=== PATIENT | male | born 1975 | race Caucasian/White ===

== ENCOUNTER 2020-12-28 08:08 | Outpatient (REF) | payer SELFPAY ==
[2020-12-28 10:04] LABS: MANUAL DIFF FLAG NO
[2020-12-28 10:12] LABS: Basophils Percent Auto 0.8 % (0-2); Eosinophils Absolute Auto 0.2 X10*3/uL (0.0-0.4); Eosinophils Percent Auto 5.3 % (0-4); Hematocrit 42.3 % (42.0-52.0); Hemoglobin 13.9 g/dl (14.0-18.0); Imm Gran Abs Auto 0.01 X10*3/uL (0.00-0.03); Imm Gran Pct Auto 0.3 % (0.0-0.4); Lymphocytes Absolute Auto 1.5 X10*3/uL (1.2-4.9); Lymphocytes Percent Auto 38.9 % (20-40); Mean Corpuscular HGB Conc 32.9 g/dl (31.0-36.0); Mean Corpuscular Volume 94.2 fL (80.0-98.0); Monocytes Absolute Auto 0.4 X10*3/uL (0.1-1.2); Monocytes Percent Auto 10.9 % (2-11); Neutrophils Absolute Auto 1.6 x10*3/uL (2.0-8.3); Neutrophils Percent Auto 43.8 % (45-73); Platelet Count 296 X10*3/uL (160-400); Red Blood Count 4.49 X10*6/uL (4.60-5.80); Red Cell Distribution Width 13.8 % (11.0-16.0); White Blood Count 3.8 X10*3/uL (4.8-10.8)
[2020-12-28 10:34] LABS: Alanine Aminotransferase 32 U/L (0-40); Albumin Level 4.2 g/dL (3.5-5.0); Alkaline Phosphatase 45 U/L (39-117); Anion Gap 11 (12-20); Aspartate Amino Transferase 22 U/L (5-37); Bilirubin Total 0.4 mg/dL (0.0-1.0); Blood Urea Nitrogen 12 mg/dL (9-16); Calcium 8.9 mg/dL (8.4-10.2); Carbon Dioxide 28 mmol/L (22-29); Chloride 105 mmol/L (96-108); Cholesterol 227 mg/dL; Estimated Glomerular Filt Rate > 60; Glucose Fasting 102 mg/dL (60-99); HDL Cholesterol 58 mg/dL; LDL Cholesterol Calculated 130 mg/dl; Potassium 4.3 mmol/L (3.3-5.1); Sodium 140 mmol/L (135-145); Total Protein 6.8 g/dL (6.5-8.0); Triglycerides 199 mg/dL
== END 2020-12-28 08:09 | disposition home or self-care (01) ==
LOC: HO.10HDL 08:08
PROVIDERS: Visit Provider Internal Medicine
DX: E78.00 Pure hypercholesterolemia, unspecified (principal); E55.9 Vitamin D deficiency, unspecified; Z87.820 Personal history of traumatic brain injury
CPT/HCPCS: 36415; 80053; 80061; 82306; 85025

== ENCOUNTER 2023-01-26 09:12 | Outpatient (REF) | payer SELFPAY ==
[2023-01-26 10:35] LABS: MANUAL DIFF FLAG NO
[2023-01-26 10:39] LABS: Basophils Percent Auto 0.9 % (0-2); Eosinophils Absolute Auto 0.2 X10*3/uL (0.0-0.4); Eosinophils Percent Auto 4.2 % (0-4); Hematocrit 43.3 % (42.0-52.0); Hemoglobin 14.7 g/dl (14.0-18.0); Lymphocytes Absolute Auto 1.8 X10*3/uL (1.2-4.9); Lymphocytes Percent Auto 40.3 % (20-40); Mean Corpuscular HGB Conc 33.9 g/dl (31.0-36.0); Mean Corpuscular Hemoglobin 30.9 pg (27.0-33.0); Mean Corpuscular Volume 91.2 fL (80.0-98.0); Mean Platelet Volume 8.9 fL (9.4-12.4); Monocytes Absolute Auto 0.4 X10*3/uL (0.1-1.2); Neutrophils Absolute Auto 2.1 x10*3/uL (2.0-8.3); Neutrophils Percent Auto 46.6 % (45-73); Platelet Count 286 X10*3/uL (160-400); Red Blood Count 4.75 X10*6/uL (4.60-5.80); Red Cell Distribution Width 13.2 % (11.0-16.0); White Blood Count 4.5 X10*3/uL (4.8-10.8)
[2023-01-26 11:10] LABS: Alanine Aminotransferase 22 U/L (0-40); Albumin Level 4.3 g/dL (3.5-5.0); Alkaline Phosphatase 45 U/L (39-117); Anion Gap 9 (12-20); Aspartate Amino Transferase 17 U/L (5-37); Bilirubin Total 0.4 mg/dL (0.0-1.0); Blood Urea Nitrogen 15 mg/dL (9-16); Calcium 9.1 mg/dL (8.4-10.2); Carbon Dioxide 31 mmol/L (22-29); Chloride 104 mmol/L (96-108); Cholesterol 212 mg/dL (<200); Estimated Glomerular Filt Rate > 60; Glucose Fasting 101 mg/dL (60-99); HDL Cholesterol 63 mg/dL (>40); LDL Cholesterol Calculated 123 mg/dL (<100); Potassium 4.3 mmol/L (3.3-5.1); Sodium 140 mmol/L (135-145); Total Protein 7.1 g/dL (6.5-8.0); Triglycerides 131 mg/dL (<150)
[2023-01-26 11:20] LABS: Vitamin D 25-OH Total 42.8 ng/mL (>30)
== END 2023-01-26 09:13 | disposition home or self-care (01) ==
LOC: HO.10HDL 09:12
PROVIDERS: Visit Provider Internal Medicine
DX: Z00.00 Encounter for general adult medical examination without abnormal findings (principal); E55.9 Vitamin D deficiency, unspecified
CPT/HCPCS: 36415; 80053; 80061; 82306; 85025

== ENCOUNTER 2023-09-21 08:38 | Outpatient (REF) | payer SELFPAY ==
[2023-09-21 10:22] LABS: MANUAL DIFF FLAG NO
[2023-09-21 10:23] LABS: Eosinophils Absolute Auto 0.1 X10*3/uL (0.0-0.4); Eosinophils Percent Auto 3.6 % (0-4); Hematocrit 43.2 % (42.0-52.0); Hemoglobin 14.8 g/dl (14.0-18.0); Imm Gran Abs Auto 0.01 X10*3/uL (0.00-0.03); Imm Gran Pct Auto 0.3 % (0.0-0.4); Lymphocytes Absolute Auto 1.6 X10*3/uL (1.2-4.9); Lymphocytes Percent Auto 40.1 % (20-40); Mean Corpuscular HGB Conc 34.3 g/dl (31.0-36.0); Mean Corpuscular Hemoglobin 31.4 pg (27.0-33.0); Mean Corpuscular Volume 91.5 fL (80.0-98.0); Mean Platelet Volume 8.8 fL (9.4-12.4); Monocytes Absolute Auto 0.4 X10*3/uL (0.1-1.2); Neutrophils Absolute Auto 1.8 x10*3/uL (2.0-8.3); Platelet Count 275 X10*3/uL (160-400); Red Blood Count 4.72 X10*6/uL (4.60-5.80); Red Cell Distribution Width 13.2 % (11.0-16.0); White Blood Count 3.9 X10*3/uL (4.8-10.8)
[2023-09-21 11:03] LABS: Alanine Aminotransferase 27 U/L (0-40); Albumin Level 4.3 g/dL (3.5-5.0); Alkaline Phosphatase 41 U/L (39-117); Anion Gap 9 (12-20); Aspartate Amino Transferase 18 U/L (5-37); Bilirubin Total 0.8 mg/dL (0.0-1.0); Blood Urea Nitrogen 15 mg/dL (9-16); C Reactive Protein < 0.04 mg/dL (< or = 0.50); Calcium 9.6 mg/dL (8.4-10.2); Carbon Dioxide 31 mmol/L (22-29); Chloride 104 mmol/L (96-108); Cholesterol 220 mg/dL (<200); Estimated Glomerular Filt Rate > 60; Glucose Fasting 95 mg/dL (60-99); HDL Cholesterol 69 mg/dL (>40); LDL Cholesterol Calculated 134 mg/dL (<100); Lipase 24 U/L (8-78); Potassium 4.2 mmol/L (3.3-5.1); Sodium 140 mmol/L (135-145); Total Protein 7.1 g/dL (6.5-8.0); Triglycerides 86 mg/dL (<150)
== END 2023-09-21 08:39 | disposition home or self-care (01) ==
LOC: HO.10HDL 08:38
PROVIDERS: Visit Provider Internal Medicine
DX: R10.9 Unspecified abdominal pain (principal); E78.00 Pure hypercholesterolemia, unspecified
CPT/HCPCS: 36415; 80053; 80061; 83690; 85025; 86140

== ENCOUNTER 2023-09-28 07:59 | Outpatient (REF) | payer OTHER, SELFPAY ==
--- NOTE | ~2023-09-28 | US_ITS ---
EXAMINATION: US ABDOMEN COMPLETE CLINICAL INFORMATION: Abdominal bloating. COMPARISON: None available. TECHNIQUE: Real-time imaging of the abdominal viscera. FINDINGS: PANCREAS: The distal pancreas is not well seen due to shadowing from overlying bowel gas, otherwise within normal limits. ABDOMINAL AORTA: Visualized portions are normal. INFERIOR VENA CAVA: Visualized portions are normal. LIVER: The liver is normal in size. The liver contour is normal. Parenchymal echogenicity is normal. No focal hepatic lesion. There is no intrahepatic biliary duct dilatation seen. GALLBLADDER: Suggestion of 0.6 cm polyp or adherent calculus in the region of the gallbladder neck. No significant gallbladder wall thickening. No pericholecystic free fluid. Negative Church's sign. COMMON BILE DUCT: Not well visualized due to shadowing from overlying bowel gas. The well-seen upper third measures up to 0.3 cm in diameter. RIGHT KIDNEY: Simple appearing cyst in the lower pole measuring 0.9 cm. Hyperechoic lesion in the lower pole measuring 0.4 x 0.5 cm without associated color flow on vascular Doppler nor significant posterior shadowing features. No hydronephrosis or renal calculi. The kidney measures 10.8 cm in maximum dimension. LEFT KIDNEY: No hydronephrosis. No renal calculi or focal parenchymal lesions. The kidney measures 10.5 cm in maximum dimension. SPLEEN: The spleen measures 8.6 cm in maximum dimension. FREE FLUID: None. US/US abdomen complete IMPRESSION: 1. Suggestion of a 0.6 cm polyp or adherent calculus in the region of the gallbladder neck. Recommend a follow-up ultrasound in 6 months. 2. Nonspecific hyperechoic lesion in the lower pole of the right kidney, possibly representing a small angiomyolipoma. This could be followed up at the moment of reevaluation of the gallbladder abnormality. Electronically signed by: Izabella Roy MD 09/28/2023 09:26 AM EDT
== END 2023-09-28 08:00 | disposition home or self-care (01) ==
LOC: HO.US 07:59
PROVIDERS: PCP Internal Medicine; Visit Provider Internal Medicine
DX: R14.0 Abdominal distension (gaseous) (principal)
CPT/HCPCS: 76700

== ENCOUNTER 2024-05-14 08:59 | Outpatient (AMB) | payer OTHER, SELFPAY ==
--- NOTE | 2024-05-14 09:00 | A.OFFPC_ITS ---
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 Required: No Accompanied by: Self / Same As Patient Allergies No Known Allergies Allergy (Verified 05/14/24 09:42) Medication List - Last Reconciled 05/14/24 by Benny Velez MD dextroamphetamine-amphetamine 25 mg ER (Adderall XR) 25 mg PO DAILY fluoxetine 20 mg PO DAILY Tobacco use date assessed: 05/14/24 Dental Screening Dental Screen Date: 05/14/24 Did you have a dental visit in the last 12 months?: Yes Did you have a dental problem in the last 6 months where you did not have access to dental care?: No [facility] Medical History Hyperlipidemia Traumatic brain injury ADHD (attention deficit hyperactivity disorder) Family History Mother No problems noted. Father No problems noted. Social History Housing: House Patient Tobacco Use Status: Never used Tobacco e-Cigarette/Vaping Use: Never Used service: No Current occupational status: employed Cognitive needs: No Hearing needs: No Vision needs: No Questionnaire PHQ-9 Over the last 2 weeks, how often have you been bothered by any of the following problems? 1. Little interest or pleasure in doing things: not at all 2. Feeling down, depressed, or hopeless: not at all 3. Trouble falling or staying asleep, or sleeping too much: not at all 4. Feeling tired or having little energy: not at all 5. Poor appetite or overeating: not at all 6. Feeling bad about yourself - or that you are a failure or have let yourself or your family down: not at all 7. Trouble concentrating on things, such as reading the newspaper or watching television: not at all 8. Moving or speaking so slowly that other people could have noticed. Or the opposite - being so fidgety or restless that you have been moving around a lot more than usual: not at all 9. Thoughts that you would be better off or of hurting yourself in some way: not at all Total score: 0 Depression Screening Interpretation: Negative Depression Screening Done: Yes Source: Developed by Drs. Eran Fajardo, Yamilex Aguilera, Derrick Blanco and colleagues, with an educational anirudh from [employer]. Thrive Questionnaire Date Thrive assessed: 05/14/24 I am a: Patient Within the past 12 months, did the food you bought not last and you didn't have the money to get more?: Never true Within the past 12 months, did you worry whether your food would run out before you got money to buy more?: Never true Do you have trouble paying for medicines?: No Do you have trouble getting transportation to medical appointments?: No Do you have trouble paying your heating and electricity bill?: No Do you have trouble taking care of your child, family member or friend?: No Do you have trouble with day-to-day activities such as bathing, preparing meals, shopping, managing finances, etc.?: No Are you currently unemployed and looking for a job?: No Are you interested in more education?: No Currently or been in a relationship where the following occur: No concerns reported THRIVE Score: 0 AUDIT C Alcohol Use Questionnaire (AUDIT-C) 1. How often do you have a drink containing alcohol?: Monthly or less 2. How many drinks containing alcohol do you have on a typical day when you are drinking?: 1 or 2 3. How often do you have six or more drinks on one occasion?: Less than monthly Total Score: 2 KLAUDIA-7 AMB Questionnaire KLAUDIA-7 Date KLAUDIA - 7 assessed: 05/14/24 Feeling nervous, anxious, or on edge: 0 = Not at all Not being able to stop or control worryin = Not at all Worrying too much about different things: 0 = Not at all Trouble relaxin = Not at all Being so restless that it is hard to sit still: 0 = Not at all Becoming easily annoyed or irritable: 0 = Not at all Feeling afraid as if something awful might happen: 0 = Not at all Total KLAUDIA-7 score (0-4 normal; 5-9 mild; 10-14 moderate; 15-21 severe): 0 Source: Developed by Drs. Eran Fajardo, Yamilex Aguilera, Derrick Blanco and colleagues, with an educational anirudh from [employer]. Physical exam (Primary Care) Vital Signs: Last Vital Signs Temp 97.9 F 05/14/24 09:08 Pulse 74 05/14/24 09:08 BP 122/80 05/14/24 09:08 Pulse Ox 99 05/14/24 09:08 Oxygen Delivery Method Room Air 05/14/24 09:08 Care Plan Goal for BP management: BP is in range. On no medications BMI result Body Mass Index 23.5 Tobacco/Smoking Status: Tobacco use Status Tobacco use date assessed 05/14/24 05/14/24 09:03 Patient Tobacco Use Status Never used Tobacco 05/14/24 09:03 e-Cigarette/Vaping Use Never Used 05/14/24 09:03 PHQ-9: PHQ-9 Score PHQ-9: Total score 0 05/14/24 09:16 Depression Screening Interpretation: Negative Thrive Assessment: Date of Thrive Assessment Date Thrive assessed 05/14/24 05/14/24 09:03 Currently or been in a relationship where the following occur: No concerns reported Coding Level of Care Code New Pt Level 4 (79054) Complex EM visit Add On G2211 Diagnoses ADHD (attention deficit hyperactivity disorder) F90.9 Traumatic brain injury S06.9XAA Hyperlipidemia E78.5 Assessment & Plan Assessment & Plan (1) ADHD (attention deficit hyperactivity disorder): Code(s): F90.9 - Attention-deficit hyperactivity disorder, unspecified type Category: Medical Plan: Sx well controlled on Adderal. He is fully functional and able to do all ADL's (2) Traumatic brain injury: Code(s): S06.9XAA - Unspecified intracranial injury with loss of consciousness status unknown, initial encounter Category: Medical Plan: Patient needs SSRI for functioning. Current dosage is appropriate. (3) Hyperlipidemia: Code(s): E78.5 - Hyperlipidemia, unspecified Category: Medical Plan: Condition is stable, continue current medications Plan History of Present Illness The patient is a 48-year-old male presenting with a need for a screening colonoscopy due to a notable family history of colon cancer. Both his father and uncle had colon cancer, which prompts his vigilance for early screening. Previously, an ultrasound showed nondescript masses, not deemed concerning by his physician, yet he was unable to secure clear findings. 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 He was initially treated with fluoxetine, having responded well to it for his anxiety and depressive symptoms. Over years, he suspected ADHD might contribute to his cognitive complaints, leading to trials of Ritalin and eventual transition to Adderall, which effectively mitigates his symptoms. He notably manages cholesterol levels, albeit presently without fasting lab data. His medication regimen includes a daily dose of fluoxetine and Adderall, which aligns with his needs without immediate refill requirements. Social History - Lives in [place] with his ; no children - Employed at [employer] - No additional details on substance use or exercise habits Review of Systems - Gastrointestinal: Reports gassy symptoms; denies current stomach pain - Neurological: Reports past cognitive issues and brain fog - Psychiatric: Reports taking fluoxetine for depression and anxiety; reports taking Adderall Physical Exam General: Cooperative and healthy appearing Nutritional Appearance: Well nourished Orientation/consciousness: Patient oriented x3 Limitations: No limitations Head: Normal to inspection General: Appearance normal, both eyes and all related structures Neck: Normal visual inspection Chest: Normal palpation of entire chest wall Respiratory: N ormal respiratory effort Neurology: Patient oriented x3, history of traumatic brain injury, in a coma for three days, cognitive issues, currently on fluoxetine and Adderall. Results - Labs: Higher end cholesterol levels (self-reported) - Diagnostics: Inconclusive ultrasound from six months ago (self-reported) Plan The patient and I discussed proceeding with a screening colonoscopy due to his concerning family history of colon cancer, contingent upon insurance acceptance at the preferred location. His ADHD management regimen of Adderall appears effective, thus it will be maintained. Fluoxetine will continue to support his psychiatric stability. To evaluate his elevated cholesterol further, fasting labs have been advised, and addressing dietary factors is encouraged. We will synchronize further steps based on subsequent results and maintain periodic assessments to ensure optimal health management. Patient was informed and verbally consented to the use of an ambient scribe for clinic note documentation during this visit. Discussion Notes During today's session, we thoroughly reviewed the need for colon cancer screening given the patient's familial risk, and I obtained his consent to move forward with initiating a screening colonoscopy. We discussed continuing current psychiatric medications, fluoxetine and Adderall, as they appear to be managing his symptoms effectively. I highlighted the importance of returning for fasting labs to comprehensively address his cholesterol levels. He understands the need for close monitoring and agreed with the planned interventions, expressing readiness to comply with the outlined approaches for preventive care and chronic condition treatment. Return precautions and further evaluations will be contingent on upcoming diagnostics. Patient Instructions - Schedule a colonoscopy at [place], ensuring insurance coverage is confirmed. - Continue taking prescribed fluoxetine and Adderall as directed. - Follow dietary recommendations to manage cholesterol levels. - Return to the lab for fasting blood work. - Monitor for any new or worsening symptoms and follow up as discussed. Medications: Refilled dextroamphetamine-amphetamine 25 mg ER (Adderall XR) 25 mg PO DAILY 30 caps 0RF
[2024-05-14 09:08] VITALS: BP 122/80; PULSE 74; TEMP 36.6; O2SAT 99; BMI 23.5
== END 2024-05-14 09:33 | disposition home or self-care (01) ==
LOC: HO.HMCHD 08:59
PROVIDERS: PCP Internal Medicine; Visit Provider Internal Medicine
DX: F90.9 Attention-deficit hyperactivity disorder, unspecified type (principal); S06.9XAA Unspecified intracranial injury with loss of consciousness status unknown, initial encounter; E78.5 Hyperlipidemia, unspecified

== ENCOUNTER → 2024-05-14 08:59 | Outpatient (BNVA) | payer OTHER, SELFPAY | PROVIDERS: PCP Internal Medicine; Visit Provider Internal Medicine ==

== ENCOUNTER 2024-07-11 07:05 | Outpatient (REF) | payer OTHER, SELFPAY ==
--- OUTSIDE RECORDS SUMMARY | 2024-07-11 07:08 | XMS_ITS ---
Author Name [facility] Organization Unknown Care Team Organization Name Specialty Phone Email Start Date End Da te [employer] 03/24/2021 0 09/24/2023
[2024-07-11 11:59] LABS: Appearance Urine Clear; Color Urine Yellow; Glucose Urine UA Negative (Negative); Leukocyte Esterase Urine Negative (Negative); Nitrite Urine Negative (Negative); Specific Gravity - Urine 1.025 (1.005-1.025); Urine Blood Negative (Negative); Urine Ketones Trace mg/dL (Negative); Urine Protein Negative (Neg-Trace)
[2024-07-11 12:04] LABS: Hematocrit 43.7 % (42.0-52.0); Hemoglobin 14.7 g/dl (14.0-18.0); Mean Corpuscular HGB Conc 33.6 g/dl (31.0-36.0); Mean Corpuscular Hemoglobin 30.9 pg (27.0-33.0); Mean Corpuscular Volume 91.8 fL (80.0-98.0); Mean Platelet Volume 9.6 fL (9.4-12.4); Platelet Count 316 X10*3/uL (160-400); Red Blood Count 4.76 X10*6/uL (4.60-5.80); Red Cell Distribution Width 13.5 % (11.0-16.0); White Blood Count 4.7 X10*3/uL (4.8-10.8)
[2024-07-11 12:25] LABS: Alanine Aminotransferase 33 U/L (0-40); Albumin Level 4.5 g/dL (3.5-5.0); Alkaline Phosphatase 46 U/L (39-117); Anion Gap 11 (12-20); Aspartate Amino Transferase 25 U/L (5-37); Bilirubin Direct 0.2 mg/dL (0.0-0.5); Bilirubin Total 0.5 mg/dL (0.0-1.0); Blood Urea Nitrogen 19 mg/dL (9-16); Calcium 9.5 mg/dL (8.4-10.2); Carbon Dioxide 30 mmol/L (22-29); Chloride 104 mmol/L (96-108); Cholesterol 219 mg/dL (<200); Estimated Glomerular Filt Rate > 60; Glucose Random 102 mg/dL (60-115); HDL Cholesterol 76 mg/dL (>40); LDL Cholesterol Calculated 123 mg/dL (<100); Potassium 4.5 mmol/L (3.3-5.1); Sodium 140 mmol/L (135-145); Total Protein 7.2 g/dL (6.5-8.0); Triglycerides 103 mg/dL (<150)
== END 2024-07-11 07:06 | disposition home or self-care (01) ==
LOC: HO.10HDL 07:05
PROVIDERS: Visit Provider Internal Medicine
DX: E78.5 Hyperlipidemia, unspecified (principal)
CPT/HCPCS: 36415; 80048; 80061; 80076; 81003; 84443; 85027

== ENCOUNTER 2024-08-26 08:00 | Day surgery (SDC) | payer OTHER, SELFPAY ==
--- OUTSIDE RECORDS SUMMARY | 2024-07-25 05:40 | XMS_ITS ---
Author Organization [facility] Address [address] [place] [address] Care Team Providers Care Traffic Signal Repairer Name Role Phone KENDALL BASS Primary Care Provider Johnie Rincon Jr Unavailable [phone] Allergies No Known Allergies REASON FOR VISIT Patient presents today for a colon screening Medications Medication SIG (Take, Route, Frequency, Duration) Notes Start Date End Date Status Atorvastatin Calcium 20 MG 1 tablet Oral ly Once a day for 30 day(s) 07/25/2024 Active FLUoxetine HCl 20 MG 1 capsule Orally On ce a day for 30 day(s) 07/25/2024 Active Adderall 20 MG 1 tablet Orally Twic e a day 07/25/2024 Active Immunizations Vaccine Route Administration Date Status Comme nts Influenza Unknown 07/25/2024 Refused Social History Tobacco Use: Social History Observation Description Date Details (start date - stop date) Current Smoker NA - NA Tobacco Control (Standard) Question Answer Notes Tobacco use: Current smoker AUDIT-C (Standard) Question Answer Notes Did you have a drink contain ing alcohol in the past year? Yes How often did you have a dri nk containing alcohol in the past year? 2 to 3 times a week (3 points) How many drinks did you have on a typical day when you were drinking in the past year? 3 or 4 drinks (1 point) How often did you have six o r more drinks on one occasion in the past year? Never (0 point) Points 4 Interpretation Positive Problems Problem Type SNOMED Code ICD Code Onset Dates Problem Status W/U Status Risk Notes Problem Screening for malignant neoplasm of colon (707428514) Encounter for screening for malignant neoplasm of colon (Z12.11) Active confirmed Problem Gas (43009895) Gas (R14.3) Active confirmed Problem Bloating (R14.0) Active confirmed Vital Signs Temperature 98.9 degrees Fahrenheit 07/26/19 25 Blood pressure systolic 001 mm Hg 07/26/19 25 Blood pressure diastolic 01 mm Hg 025 Height 72 in 07/25/2024 Weight 174.4 lbs 07/25/2024 BMI 23.65 kg/m2 07/25/2024 Encounters Encounter Location Date Provider Diagnosis [facility] [address] [place] [address] 07/25/2024 Johnie Og Jr Encounter for screening for malignant neoplasm of colon Z12.11 ; Gas R14.3 and Bloating R14.0 Assessments Encounter Date Diagnosis (ICD Code) Assessment Notes Treatment Notes Treatment Clinical Notes Section Notes 07/25/2024 Encounter for screening for malignant neoplasm of colon (ICD-10 - Z12.11) We discussed gas and bloating today. We discussed foods to avoid that can cause this including cruciferous vegetables, beans, and foods that may upset his stomach. We discussed treatment with skgx-ihc-hwnbbq r anti-gas measures. He is due for colonoscopy. We discussed colon cancer screening today. He understands risks and benefits and agrees to proceed. 07/25/2024 Gas (ICD-10 - R14.3) We discussed gas and bloating today. We discussed foods to avoid that can cause this including cruciferous vegetables, beans, and foods that may upset his stomach. We discussed treatment with anyn-cfp-fbqihd r anti-gas measures. He is due for colonoscopy. We discussed colon cancer screening today. He understands risks and benefits and agrees to proceed. 07/25/2024 Bloating (ICD-10 - R14.0) We discussed gas and bloating today. We discussed foods to avoid that can cause this including cruciferous vegetables, beans, and foods that may upset his stomach. We discussed treatment with obcx-tqv-ulibca r anti-gas measures. He is due for colonoscopy. We discussed colon cancer screening today. He understands risks and benefits and agrees to proceed. Plan Of Treatment Future Test Test Name Order Date COLONOSCOPY 07/25/2024 Next Appt Details Follow Up: 1 Year, Reason: Provider Name:Johnie Vargas lorna , 08/26/2024 10:10:00 AM, [address] [place] [address] , [place], [place], [phone], Progress Notes * BIB CASTRODOB:1975 ( 48 yo M)Acc No.[id number]:07/25/2024 Progress Notes Patient: BIB BUTT Provider: Harley Og MD :1975 A ge:48 Y S ex:Male Date:07/25/2024 Address:[address] [place] [address] Pcp:KENDALL BASS Subjective: * Chief Complaints: * 1 . Patient presents today for a colon screening. * HPI: N ew symptom(s): Bib is a pleasant 48-year-old man seen today in consultation. He has a strong family history of colon cancer. His father had the disease diagnosed in his 60s and underwent surgery. He was tested for Wolfe syndrome which was reportedly negative. An uncle on his father side also had colon cancer and surgery. The patient complains of symptoms including gas and loose stools in the morning. He reports gurgling in the abdomen which is somewhat better now. This has been present for months. He cut back on tea. He has been trying to eliminate foods which he believes may cause this intermittently. He has no diarrhea now. His last colonoscopy was reportedly 6+ years ago. He believes this was normal. This was reportedly done in [place]. * ROS: G eneral/Constitutional: Change in appetite d enies. F atigue d enies. ? E NT: Patient denies d ifficulty swallowing. R espiratory: Patient denies s hortness of breath. C ardiovascular: Patient denies c hest pain. G astrointestinal: Comments S [facility] for details. G enitourinary: Difficulty urinating d enies. I ncontinence d enies. M usculoskeletal: Patient denies m uscle aches. S kin: Patient denies p ruritis. N eurologic: Patient denies l ow back pain. P sychiatric: Patient denies m ental or physical abuse. * Medical History: H yperlipidemia, Traumatic brain injury, ADHD. * Family History: F ather: alive, diagnosed with Colon cancer. M other: alive. No family history of liver cancer. * Social History: T obacco Use: T obacco Control (Standard) T obacco use: C urrent smoker. M iscellaneous: M arital status: . 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 D rug/Alcohol: A DAHLIA-C (Standard) D id you have a drink containing alcohol in the past year? Y es,?How often did you have a drink containing alcohol in the past year? 2 to 3 times a week (3 points), H ow many drinks did you have on a typical day when you were drinking in the past year??3 or 4 drinks (1 point), H ow often did you have six or more drinks on one occasion in the past year? N ever (0 point), P oints 4 , I nterpretation P ositive. * Medications: T aking Atorvastatin Calcium 20 MG Tablet 1 tablet Orally Once a day , Taking FLUoxetine HCl 20 MG Capsule 1 capsule Orally Once a day , Taking Adderall 20 MG Tablet 1 tablet Orally Twice a day * Allergies: N .K.D.A. Objective: * Vitals: W t: 174.4 lbs, Ht: 72 in, BMI:23.65Index, BP: 001/01 mm Hg, Temp: 98.9, Ht-cm: 182.88, Wt-k.11. * Examination: G eneral Examination: GENERAL APPEARANCE: i n no acute distress. HEAD: n ormocephalic. EYES: s clera non-icteric. ORAL CAVITY: m ucosa moist. NECK/THYROID: n o lymphadenopathy. SKIN: a nicteric. HEART: S 1, S2 normal, no murmurs. LUNGS: c lear to auscultation bilaterally. CHEST: n ormal shape and expansion. ABDOMEN: s oft, nontender, nondistended, bowel sounds present, no organomegaly . EXTREMITIES: n o clubbing, cyanosis, or edema. PSYCH: c ognitive function intact. Assessment: * Assessment: 1. G as - R14.3 (Primary) 2 . E ncounter for screening for malignant neoplasm of colon - Z12.11 3 . B loating - R14.0 We discussed gas and bloatin g today. We discussed foods to avoid that can cause this including cruciferous vegetables, beans, and foods that may upset his stomach. We discussed treatment with lvbd-iio-uwcmlwa anti-gas measures. He is due for colonoscopy. We discussed colon cancer screening today. He understands risks and benefits and agrees to proceed. Plan: * Treatment: * Immunizations: Influenza (Not administered - Refused: Patient decision) * Procedure Codes: 3 017F COLORECTAL CA SCREEN DOC REV, G9902 Pt scrn tbco and id as user, G9908 No pt tbco cess interv rng, G8785 BP SCR NOT PRFRM REC REASON NOS * Preventive Medicine: Counseling: Chris bashir counseled on the dangers of tobacco use and urged to quit. 0 07/25/2024, R elapse prevention: Reginald iscussed the importance of a supportive environment and helped identify them.. * Follow Up: 1 Year * * Sign off status: Completed true * Provider: Harley Og MD Date: 0 07/25/2024 Generated for Sonya durant/Himanshu/Jennaitting on: 0 07/30/2024 04:42 PM EDT History and Physical Notes * HPI (History of Present Illness) Category Sub-Category Detail Notes Category Not es New symptom(s) Bib is a pleasant 48-year-old man seen today in consultation. He has a strong family history of colon cancer. His father had the disease diagnosed in his 60s and underwent surgery. He was tested for Wolfe syndrome which was reportedly negative. An uncle on his father side also had colon cancer and surgery. The patient complains of symptoms including gas and loose stools in the morning. He reports gurgling in the abdomen which is somewhat better now. This has been present for months. He cut back on tea. He has been trying to eliminate foods which he believes may cause this intermittently. He has no diarrhea now. His last colonoscopy was reportedly 6+ years ago. He believes this was normal. This was reportedly done in [place]. Examination Category Sub-Category Detail Notes Category Not es General Examination GENERAL APPEARANCE: in no acute di stress HEAD: normocephalic EYES: sclera non-icteric NECK/THYROID: no lymphadenopathy HEART: S1, S2 normal, no mu rmurs CHEST: normal shape and exp ansion LUNGS: clear to auscultatio n bilaterally ABDOMEN: soft, nontender, non distended, bowel sounds present, no organomegaly SKIN: anicteric EXTREMITIES: no clubbing, cyanosi s, or edema PSYCH: cognitive function i ntact ORAL CAVITY: mucosa moist
[2024-08-22 13:49] VITALS: BMI 23.7
--- NOTE | 2024-08-25 13:31 | P.CONAN_ITS ---
HPI - Anesthesia Eval Consult details Narrative: 48 yr old male for colonoscopy H/O TBI 1998, on SSRI, Adderall PMFSH Active Problems Active Problems: All Active Problems Hyperlipidemia (Acute) Traumatic brain injury (Acute) ADHD (attention deficit hyperactivity disorder) (Acute) Past Medical History Medical History Family hx of colon cancer Hyperlipidemia Traumatic brain injury ADHD (attention deficit hyperactivity disorder) Family History Family History Mother No problems noted. Father No problems noted. Surgical History Surgical History (Updated 08/27/24 @ 19:42 by Benny Velez MD) H/O colonoscopy (08/26/24) Social History Social History Housing: House Are you a primary nurse healthcare manager to a significant other at home: No Do you presently have visiting nurse or other home services: No Patient Tobacco Use Status: Current everyday Tobacco user Tobacco use type: Cigarette Cigarettes Per Day: 1 e-Cigarette/Vaping Use: Never Used Use of substances other than those prescribed or required for medical reasons: Yes Substance Use Frequency: Occasionally Have you been hit, kicked, punched, or otherwise hurt by someone within the past year? If so, by whom?: No Are you DNR?: No Advance Directives: No Advance Directives Information Provided: Yes Poor oral hygiene: No service: No Current occupational status: employed Cognitive needs: No Hearing needs: No Vision needs: No Meds Allergies Allergy/AdvReac Type Severity Reaction Status Date / Time No Known Allergies Allergy Verified 08/26/24 08:30 Exam Height,Weight and Vital Signs: Height 6 ft Weight 79.107 kg
[2024-08-26 08:31] VITALS: BP 122/81; PULSE 67; RESP 14; TEMP 37; O2SAT 100; BMI 22.4
[2024-08-26] MEDS: Lactated Ringers 1,000 ML 100 ML IVCONT (08:47)
--- NOTE | 2024-08-26 09:13 | P.CONAN_ITS ---
[facility] Active Problems Active Problems: All Active Problems (Updated 08/22/24 @ 13:52 by Lakisha Brand RN) Hyperlipidemia (Acute) Traumatic brain injury (Acute) ADHD (attention deficit hyperactivity disorder) (Acute) Past Medical History Medical History Family hx of colon cancer Hyperlipidemia Traumatic brain injury ADHD (attention deficit hyperactivity disorder) Functional capacity: independent ambulation Family History Family History Mother No problems noted. Father No problems noted. Family history of problems with anesthesia: No Surgical History Surgical History H/O colonoscopy History of Problems with Anesthesia: No Social History Social History Housing: House Are you a primary career technology teacher to a significant other at home: No Do you presently have visiting nurse or other home services: No Patient Tobacco Use Status: Current everyday Tobacco user Tobacco use type: Cigarette Cigarettes Per Day: 1 e-Cigarette/Vaping Use: Never Used Use of substances other than those prescribed or required for medical reasons: Yes Substance Use Frequency: Occasionally Have you been hit, kicked, punched, or otherwise hurt by someone within the past year? If so, by whom?: No Are you DNR?: No Advance Directives: No Advance Directives Information Provided: Yes Poor oral hygiene: No service: No Current occupational status: employed Cognitive needs: No Hearing needs: No Vision needs: No Meds Allergies Allergy/AdvReac Type Severity Reaction Status Date / Time No Known Allergies Allergy Verified 08/26/24 08:30 Active Medications: Current Medications Lactated Ringer's (Lr) 1,000 mls @ 100 mls/hr IVCONT .Q10H DANNI Last Admin: 08/26/24 08:47 Dose: 100 mls/hr Exam Height,Weight and Vital Signs: Height 6 ft Weight 75 kg Last Vital Signs Temp 98.6 F 08/26/24 08:31 Pulse 67 08/26/24 08:31 Resp 14 08/26/24 08:31 BP 122/81 08/26/24 08:31 Pulse Ox 100 08/26/24 08:31 O2 Del Method Room Air 08/26/24 08:31 Airway Mallampati Class: II TM Dist: >3cm Neck ROM: Full Heart: RRR Lungs: CTA Assessment and Plan Assessment Anesthesia Assessment: Anesthesia Plan Discussed Final Anesthetic Review Family History of Problems with Anesthesia: No History of Problems with Anesthesia: No NPO: Yes ASA Class: II Final Preanesthetic Review: Meds/Allgs Chart Reviewed, Consent Obtained/Reviewed and Anes Risks/Benef Reviewed Patient Risk: Low Procedure Risk: Low Anesthetic Plan Anesthetic Plan: MAC: Disposition: Standard PACU
--- NOTE | 2024-08-26 09:42 | P.HPSUR_ITS ---
Pre-Procedural Eval Section A - 24 Hr Update-Section A only Date of Service: 08/26/24 Section B - Complete if H&P > 30 days Chief Complaint: Encounter for screening for malignant neoplasm of Details of Present Illness: see H&P no changers Relevant Family History (Specify if Yes): No Relevant Social History: None Present Medications: see Short Stay Collaborative assessment Medical History: No relevant PMH History of Previous Operations: No relevant previous surgery Allergies: Allergies Allergy/AdvReac Type Severity Reaction Status Date / Time No Known Allergies Allergy Verified 08/26/24 08:30 Review of Systems Sugical H&P ROS: Negative: Constitution, Cardiovascular, Respiratory, Neurological, Psychiatric, Hem-Onc, Allergic/Immunologic, Gastrointestinal, Genitourinary, Musculoskeletal, Integumentary, Endocrine and Eyes/Ears/N ose/Throat Exam Surgical H&P Exam: Normal: HEENT, Normal: Heart, Normal: Lungs, Normal: Extremities, Normal: Abdomen, Normal: Skin and Normal: Neurological Plan Diagnosis/Plan: Unchanged I have reviewed the history and physical and performed a pertinent physical examination on my patient. No changes have occurred unless specified. Time Spent With Patient Time: Total time managing care of this patient today ____ minutes.
[2024-08-26 10:23] VITALS: BP 95/51; PULSE 76; RESP 15; TEMP 37; O2SAT 96
--- NOTE | 2024-08-26 10:37 | OP_ITS ---
DATE OF SERVICE: 08/26/2024 SURGEON: Johnie Og MD INDICATIONS: Screening, bloating and gas. PREOPERATIVE DIAGNOSIS: POSTOPERATIVE DIAGNOSIS: PROCEDURE PERFORMED: ESTIMATED BLOOD LOSS: COMPLICATIONS: ANESTHESIA: Monitored anesthesia care. ASSISTANTS: SPECIMENS: PROCEDURE: Colonoscopy to the cecum with biopsy. DESCRIPTION OF PROCEDURE: A History and Physical performed. The risks and benefits of the procedure were explained to the patient and informed consent was obtained. The patient was placed in the left lateral decubitus position. A digital rectal exam was performed and was found to be normal. The Olympus pediatric video colonoscope was introduced into the rectum and advanced to the cecum. The cecum was identified by transillumination, palpation, and identification of the ileocecal valve. Examination was performed. The scope was removed. He tolerated the procedure well and was taken to recovery in stable condition. FINDINGS: The terminal ileum was not examined. The visualized colonic mucosa was normal. The quality of the prep was good. No polyps were identified. Random sigmoid biopsies were obtained because of the patient's bowel issues. Retroflexed examination showed small internal hemorrhoids. IMPRESSION: Normal colonoscopy. RECOMMENDATIONS: 1. Follow up as needed. 2. Repeat colonoscopy is recommended in 5 years for family history. MD AASHISH Gonzalez/KATALINA / [phone]
[2024-08-26 10:38] VITALS: BP 112/78; PULSE 74; RESP 18; TEMP 36.6; O2SAT 97
--- NOTE | 2024-08-26 12:48 | HO.POSTANES ---
Post Anesthesia Evaluation Post Anesthesia Evaluation Date of Service: 08/26/24 Vital Signs: Vital Signs Temp Pulse Resp BP Pulse Ox O2 Del Method O2 Flow Rate 08/26/24 10:38 97.8 F 74 18 112/78 97 Room Air 08/26/24 10:23 98.6 F 76 15 95/51 L 96 Nasal Cannula with ETCO2 3 08/26/24 08:31 98.6 F 67 14 122/81 100 Room Air Anesthesia: Monitored Mental Status: Awake Pain Control: Satisfactory Nausea/Vomiting: None Hydration: Adequate Anesthesia-Related Issues: No Anes. Related Issues
== END 2024-08-26 11:01 | disposition home or self-care (01) ==
PROVIDERS: PCP Internal Medicine; Visit Provider Internal Medicine Gastroenterology
PROC: 0DJD8ZZ Inspection of Lower Intestinal Tract, Via Natural or Artificial Opening Endoscopic (ICD-10-PCS; CPT 45378; principal; 2024-08-26 09:20)
DX: Z12.11 Encounter for screening for malignant neoplasm of colon (principal); Z80.0 Family history of malignant neoplasm of digestive organs; R14.0 Abdominal distension (gaseous); R14.3 Flatulence; K64.8 Other hemorrhoids; E78.5 Hyperlipidemia, unspecified; Z87.820 Personal history of traumatic brain injury; F90.9 Attention-deficit hyperactivity disorder, unspecified type; Z79.899 Other long term (current) drug therapy
CPT/HCPCS: 45380; 88305; J2003; J2704

== ENCOUNTER 2024-10-21 08:13 | Outpatient (AMB) | payer OTHER, SELFPAY ==
--- OUTSIDE RECORDS SUMMARY | 2024-08-26 05:20 | XMS_ITS ---
Author Organization [facility] Address [address] [place] [address] Care Team Providers Care Volleyball Referee Name Role Phone KENDALL BASS Primary Care Provider Johnie Rincon Jr [phone] REASON FOR VISIT screening Encounters Encounter Location Date Provider Diagnosis [facility] [place] [address] [place], [place] [id number] 08/26/2024 Johnie Og Jr Plan Of Treatment No Information Progress Notes * MATTHEW XIDOB:1975 ( 49 yo M)Acc No.[id number]:08/26/2024 COLON WITH MAC Patient: XI BUTT Provider: Harley Og MD :1975 A ge:48 Y S ex:Male Date:08/26/2024 Address:[address] [place], [place] [id number] Pcp:KENDALL BASS Subjective: * Chief Complaints: * 1 . Screening. * Medical History: Objective: * Vitals: Assessment: Plan: * Treatment: * * The named appointment provid er may or may not be the originator of this progress note, and it is not deemed complete until electronically signed by the appointment provider. Sign off status: Pending * Provider: Harley Og MD Date: 0 08/26/2024 Generated for Marilyni ng/Fastefanieg/eTransmitting on: 0 10/21/2024 09:28 AM EDT
--- NOTE | 2024-10-21 08:15 | MHC.PC.OV ---
Vital Signs 10/21/24 08:19 Height 6 ft Weight 178 lb BMI 24.1 BP 140/90 H Blood Pressure Location Rt brachial Position Sitting Respiration 18 Pulse 83 Pulse Source Pulse Oximeter Temp 97.6 F Temp Source Temporal Artery Scan Pulse Oximetry (%) 99 Oxygen Delivery Method Room Air Intake Visit Reasons: 5 month F/U Ad Operations Intern Required: No Accompanied by: Self / Same As Patient Allergies No Known Allergies Allergy (Verified 10/21/24 08:16) Medication List - Last Reconciled 10/21/24 by Bib Bergeron MD atorvastatin 20 mg PO BEDTIME dextroamphetamine-amphetamine 25 mg ER (Adderall XR) 25 mg PO DAILY fluoxetine 20 mg PO DAILY loratadine (Claritin) 10 mg PO DAILY multivitamin 1 tab PO DAILY Tobacco use date assessed: 05/14/24 Dental Screening Dental Screen Date: 10/21/24 Did you have a dental visit in the last 12 months?: Yes Was dental information given to patient?: Patient has dentist HPI HPI Comments History of Present Illness Details The patient is a 49-year-old male presenting with stomach issues and medication management concerns. He reports having stomach discomfort attributed to dietary factors. He has undergone a colonoscopy, which was clear, and an ultrasound that indicated the presence of gas. He was diagnosed with Irritable Bowel Syndrome and believes his symptoms might be exacerbated by his current diet. He has a significant family history of colon cancer, necessitating regular colonoscopies every five years. The patient also expressed concerns regarding his high blood pressure, recently measured at 140/90 mmHg. He attributes this elevated reading to his long-term use of Adderall, prescribed for focus and clarity issues following a traumatic brain injury approximately ten years ago. Though he completed a self-assessment for ADHD, he has not undergone formal evaluation by a psychiatrist. 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 Father No problems noted. Social History Housing: House Are you a primary lawn care specialist to a significant other at home: No Do you presently have visiting nurse or other home services: No Patient Tobacco Use Status: Current everyday Tobacco user Tobacco use type: Cigarette Cigarettes Per Day: 1 e-Cigarette/Vaping Use: Never Used service: No Current occupational status: employed Cognitive needs: No Hearing needs: No Vision needs: No Questionnaire Thrive Questionnaire Date Thrive assessed: 05/14/24 AUDIT C Alcohol Use Questionnaire (AUDIT-C) 1. How often do you have a drink containing alcohol?: 2-3 times a week 2. How many drinks containing alcohol do you have on a typical day when you are drinking?: 1 or 2 Total Score: 3 KLAUDIA-7 AMB Questionnaire KLAUDIA-7 Date KLAUDIA - 7 assessed: 05/14/24 Source: Developed by Drs. Eran Fajardo, Yamilex Aguilera, Derrick Blanco and colleagues, with an educational anirudh from [employer]. Review of Systems Const Details: - Gastrointestinal: Reports stomach issues, denies nausea, vomiting - Cardiovascular: Denies chest pain - Respiratory: Denies shortness of breath - Neurological: Denies headaches, change in vision, weakness All systems reviewed & are unremarkable except as reviewed in HPI and above Physical exam (Primary Care) Vital Signs: Last Vital Signs Temp 97.6 F 10/21/24 08:19 Pulse 83 10/21/24 08:19 Resp 18 10/21/24 08:19 BP 140/90 H 10/21/24 08:19 Pulse Ox 99 10/21/24 08:19 Oxygen Delivery Method Room Air 10/21/24 08:19 BMI result Body Mass Index 24.1 Tobacco/Smoking Status: Tobacco use Status Tobacco use date assessed 05/14/24 10/21/24 08:22 Patient Tobacco Use Status Current everyday Tobacco 10/21/24 08:22 Tobacco use type Cigarette 10/21/24 08:22 e-Cigarette/Vaping Use Never Used 10/21/24 08:22 Thrive Assessment: Date of Thrive Assessment Date Thrive assessed 05/14/24 10/21/24 08:22 Const Other: General: +Alert and oriented, Well nourished, No acute distress. Eye: Pupils are equal, round and reactive to light, Intact accommodation, Extraocular movements are intact, Normal conjunctiva, Vision unchanged. HENT: Normocephalic, Atraumatic, Tympanic membranes are clear, Normal hearing, Oral mucosa is moist, No pharyngeal erythema, Ear canals patent. Respiratory: Lungs CTA bilaterally, No wheeze, Respirations are non-labored. Cardiovascular: Regular rate, Regular rhythm, S1 auscultated, S2 auscultated, No murmur, Good pulses equal in all extremities, Normal peripheral perfusion, No edema. Gastrointestinal: Soft, Non-tender, Non-distended, Normal bowel sounds, No organomegaly. Musculoskeletal: Normal range of motion, Normal strength, No tenderness, No swelling, No deformity, Normal gait. Integumentary: Warm, Dry, [place], Intact. Neurologic: Alert, Oriented, Normal sensory, Normal motor function, No focal defects, Cranial Nerves II-XII are grossly intact, Normal deep tendon reflexes. Psychiatric: Cooperative, Appropriate mood & affect, Normal judgment. Coding Level of Care Code Est Pt Level 4 (26883) Complex EM visit Add On G2211 Diagnoses Attention deficit hyperactivity disorder (ADHD), unspecified ADHD type F90.9 Attention deficit-hyperactivity disorder type: unspecified Hyperlipidemia, unspecified hyperlipidemia type E78.5 Hyperlipidemia type: unspecified Traumatic brain injury S06.9XAA Assessment & Plan Assessment & Plan (1) ADHD (attention deficit hyperactivity disorder): Comment: - Currently being managed on Adderall 25mg Daily. Never had an official assessment - Will continue refills on meds but also refer to psychiatry for official assessment Code(s): F90.9 - Attention-deficit hyperactivity disorder, unspecified type Category: Medical Qualifiers: Attention deficit-hyperactivity disorder type: unspecified Qualified Code(s): F90.9 - Attention-deficit hyperactivity disorder, unspecified type (2) Hyperlipidemia: Comment: - Elevated lipid panel from July, will continue Atorvastatin Code(s): E78.5 - Hyperlipidemia, unspecified Category: Medical Qualifiers: Hyperlipidemia type: unspecified Qualified Code(s): E78.5 - Hyperlipidemia, unspecified (3) Traumatic brain injury: Comment: 1998 Code(s): S06.9XAA - Unspecified intracranial injury with loss of consciousness status unknown, initial encounter Category: Medical Plan: Health Maintenance: - Colonoscopy every five years due to family history of colon cancer - Encouragement to monitor dietary intake and its effect on gastrointestinal symptoms Plan During today's visit, we discussed the patient's ongoing stomach issues and attributed symptoms potentially related to Irritable Bowel Syndrome. Emphasis was placed on dietary modifications to alleviate symptoms, although details regarding specific dietary changes were not provided during the visit. The patient's family history of colon cancer underscores the importance of regular colonoscopies which will be scheduled every five years. We addressed concerns regarding blood pressure management, noting a recent reading of 140/90 mmHg, which is a concern due to his essential hypertension diagnosis. The association of Adderall with elevated blood pressure was discussed, prompting a review of lifestyle adjustments such as salt reduction. Additionally, the necessity for a formal ADHD evaluation was noted to establish an official diagnosis for continued use of Adderall. Orders: Referrals Psychiatry Referral F90.9 - Attention-deficit hyperactivity disorder, unspecified type Medications: Changed From dextroamphetamine-amphetamine 25 mg ER (Adderall XR) 25 mg PO DAILY 30 caps 0RF To dextroamphetamine-amphetamine 25 mg ER (Adderall XR) 25 mg PO DAILY 60 caps 0RF 60 days Patient Instructions: - Monitor and adjust diet for potential aggravation of stomach symptoms. - Maintain regular colonoscopy schedule due to family history. - Watch salt intake to help manage blood pressure. - Continue taking Adderall as prescribed and await a psychiatry referral for formal ADHD evaluation. - Seek medical attention if symptoms worsen.
[2024-10-21 08:19] VITALS: BP 140/90; PULSE 83; RESP 18; TEMP 36.4; O2SAT 99; BMI 24.1
--- OUTSIDE RECORDS SUMMARY | 2024-10-21 09:29 | XMS_ITS | Patient Health Record ---
Author Organization [facility] Address [address] [place] [address] Care Team Providers Care Lining Cutter Name Role Phone SHELIA KENDALL Primary Care Provider Johnie Rincon Jr Unavailable Allergies No Known Allergies Results Component Value Reference Range Notes Pathology Reviewed date:08/28/2024 08:48:10 AM Interpretation: Performing Lab:[facility], [address] [place] [phone] Notes/Report: Reason For Referral Referring Provider First Name KENDALL Referring Provider Last Name SHELIA Referred Organization [facility] Referred Provider Johnie Og Jr Referred Address [address],[facility] [address],[place], [place],[address], Referred Provider Specialty Gastroentero logy Referral Priority Routine Medications Medication SIG (Take, Route, Frequency, Duration) [...] Problem Screening for malignant neoplasm of colon ([id number]) Encounter for screening for malignant neoplasm of colon (Z12.11) Active confirmed Problem Flatulence, eructation and gas pain (374101072) Bloating (R14.0) Active confirmed Problem Gas ([id number]) Gas (R14.3) Active confirmed Vital Signs Temperature 98.9 degrees Fahrenheit 07/25/2024 Blood pressure diastolic 01 mm Hg 07/25/2024 Height 72 in 07/25/2024 Blood pressure systolic 001 mm Hg 07/25/2024 Weight 174.4 lbs 07/25/2024 BMI 23.65 kg/m2 07/25/2024 Encounters Encounter Location Date Provider Diagnosis [facility] [place] [place] Out[place] [address] [place] [phone] 08/26/2024 Johnie Og Jr [facility] [address] [place] [phone] 07/25/2024 Johnie Og Jr Encounter for screening for malignant neoplasm of colon Z12.11 ; Gas R14.3 and Bloating R14.0 [facility] [address] [place] [phone] 07/29/2024 Johnie Og Jr [facility] [address] [place] [phone] 08/28/2024 Johnie Og Jr Assessments Encounter Date Diagnosis (ICD Code) Assessment Notes Treatment Notes Treatment Clinical Notes Section Notes 07/25/2024 Encounter for screening for malignant neoplasm of colon (ICD-10 - Z12.11) We discussed gas and bloating today. We discussed foods to avoid that can cause this including cruciferous vegetables, beans, and foods that may upset his stomach. We discussed treatment with quyi-tcs-lmsmwo r anti-gas measures. He is due for colonoscopy. We discussed colon cancer screening today. He understands risks and benefits and agrees to proceed. 07/25/2024 Gas (ICD-10 - R14.3) We discussed gas and bloating today. We discussed foods to avoid that can cause this including cruciferous vegetables, beans, and foods that may upset his stomach. We discussed treatment with isyl-thj-qyrrso r anti-gas measures. He is due for colonoscopy. We discussed colon cancer screening today. He understands risks and benefits and agrees to proceed. 07/25/2024 Bloating (ICD-10 - R14.0) We discussed gas and bloating today. We discussed foods to avoid that can cause this including cruciferous vegetables, beans, and foods that may upset his stomach. We discussed treatment with xryl-xgg-apwfpo r anti-gas measures. He is due for colonoscopy. We discussed colon cancer screening today. He understands risks and benefits and agrees to proceed. Plan Of Treatment Future Test Test Name Order Date COLONOSCOPY 07/25/2024 Insurance Providers Payer Name Payer Address Payer Phone Subscriber Number Group Number Insured Name Patient Relationship to Insured Coverage Start Date Coverage End Date [facility] [address] [address] [place] [address] [id number] 1 [id number] [id number] Self - patient is the insured Medical (General) History Medical History History ICD Code Hyperlipidemia Traumatic brain injury ADHD
== END 2024-10-21 08:50 | disposition home or self-care (01) ==
LOC: HO.HMCHD 08:13
PROVIDERS: PCP Student in an Organized Health Care Education/Training Program; Visit Provider Student in an Organized Health Care Education/Training Program
DX: F90.9 Attention-deficit hyperactivity disorder, unspecified type (principal); E78.5 Hyperlipidemia, unspecified; S06.9XAA Unspecified intracranial injury with loss of consciousness status unknown, initial encounter